=== PATIENT | female | born 1965 | race Caucasian/White ===

== ENCOUNTER 2020-06-04 08:05 | Outpatient (REF) | payer MEDICARE, MEDICAID, SELFPAY | END 2020-06-04 08:06 | disposition home or self-care (01) | LOC: HO.HAP 08:05 | PROVIDERS: Visit Provider Nurse Practitioner Family | DX: H90.3 Sensorineural hearing loss, bilateral (principal); Z46.1 Encounter for fitting and adjustment of hearing aid | CPT/HCPCS: 92593; 99499 ==

== ENCOUNTER 2020-07-03 08:19 | Outpatient (REF) | payer MEDICARE, MEDICAID, SELFPAY | END 2020-07-03 08:20 | disposition home or self-care (01) | LOC: HO.HAP 08:19 | PROVIDERS: Visit Provider Nurse Practitioner Family | DX: Z13.89 Encounter for screening for other disorder (principal) ==

== ENCOUNTER 2021-06-02 13:58 | Outpatient (REF) | payer MEDICARE, MEDICAID, SELFPAY ==
--- NOTE | 2021-06-02 14:26 | MHC.AU.P13 ---
Hearing Instrument Problem Date of Visit: 06/02/21 Right Ear: Obstetrics Technician: Phonak Model: AUDEO M50-R Serial Number: [id number] Repair Warranty: 02/11/2022 Battery Size: Rechargeable Color: SANDALWOOD It Programmer Analyst: 1M Type of Mold: CSHELL [id number] Type of Wax Guard: CERUSTOP Dispensed By: [facility] Date of Fittin11/17/2018 Left Ear: Obstetrics Technician: Phonak Model: AUDEO M50-R Serial Number: [id number] Repair Warranty: 02/11/2022 Battery Size: Rechargeable Color: SANDALWOOD It Programmer Analyst: 1M Type of Mold: CSHELL [id number] Type of Wax Guard: CERUSTOP Dispensed By: [facility] Date of Fittin11/17/2018 Follow-Up Summary: Patient states parts and service manager got wet. Gave replacement parts and service manager, hearing aids cleaned and wax guards replaced - amplifying clearly. Patient will go home and leave in parts and service manager to be sure lights go green. If not she will drop off aids to send to [employer] for repair. [employer] is sending replacement parts and service manager for our stock at no charge as aids under warranty. Recommendations: Recommendations: Hearing instrument follow-up or maintenance as needed. Signature: Provider: SHAYNE Pollakc-HIS
== END 2021-06-02 13:59 | disposition home or self-care (01) ==
LOC: HO.HAP 13:58
PROVIDERS: Visit Provider Nurse Practitioner Family
DX: Z13.89 Encounter for screening for other disorder (principal)

== ENCOUNTER 2021-07-30 13:56 | Outpatient (REF) | payer SELFPAY ==
--- NOTE | 2021-07-30 14:23 | MHC.AU.P13 ---
Hearing Instrument Problem Date of Visit: 07/30/21 Right Ear: Lvn: Phonak Model: AUDEO M50-R Serial Number: [id number] Repair Warranty: 02/11/2022 Battery Size: Rechargeable Color: SANDALWOOD Expanded Function Dental Assistant: 1M Type of Mold: CSHELL [id number] Type of Wax Guard: CERUSTOP Dispensed By: [facility] Date of Fittin11/17/2018 Left Ear: Lvn: Phonak Model: AUDEO M50-R Serial Number: [id number] Repair Warranty: 02/11/2022 Battery Size: Rechargeable Color: SANDALWOOD Expanded Function Dental Assistant: 1M Type of Mold: CSHELL [id number] Type of Wax Guard: CERUSTOP Dispensed By: [facility] Date of Fittin11/17/2018 Follow-Up Summary: Patient brought in aids with broken canal lock on right cshell. Patient had extra bag of cshells and was able to attach another canal lock one on the right side. Both aids were cleaned and amplifying clearly. Reginaldo Mcduffie saw patient to be sure good fit. Patient pleased and will call if any other problems. Recommendations: Recommendations: Hearing instrument follow-up or maintenance as needed. Diagnosis Code(s): Primary Diagnosis: H90.3 Bilateral Sensorineural Hearing Loss Signature: Provider: SHAYNE Pollack-HIS
== END 2021-07-30 13:57 | disposition home or self-care (01) ==
LOC: HO.HAP 13:56
PROVIDERS: Visit Provider Nurse Practitioner Family
DX: Z46.1 Encounter for fitting and adjustment of hearing aid (principal); H90.3 Sensorineural hearing loss, bilateral
CPT/HCPCS: V5267

== ENCOUNTER 2022-05-11 10:30 | Outpatient (REF) | payer MEDICARE, MEDICAID, SELFPAY ==
--- NOTE | 2022-05-11 15:29 | MHC.AU.HFU ---
Hearing Instrument Follow-Up- Binaural Date of Visit: 05/11/22 Right Ear: Samantha Elizabetho M50-R SN: [id number] Color: Sandalwood Repair Warranty: 02/11/2022 Battery Size: Rechargeable Door Manager: 1M Type of Mold: C-shell with canal lock SN: [id number] Type of Wax Guard: CeruStop Dispensed By: [facility] Date of Fittin11/17/2018 Left Ear:Samantha Elizabetho M50-R SN: [id number] Color: Sandalwood Repair Warranty: 02/11/2022 Battery Size: Rechargeable Door Manager: 1M Type of Mold: c-shell with canal lock SN: [id number] Type of Wax Guard: CeruStop Dispensed By: [facility] Date of Fittin11/17/2018 Follow-Up Summary: Breanna dropped off both hearing aids reporting that the right hearing aid is not working. Cleaned both hearing aids and c-shells. Vacuumed microphones and replaced wax guards. A listening check demonstrated that the left hearing aid is working well. The right hearing aid turns on but does not amplify sound. Using a hat stock laminating machine operator, the hearing aid works well. Will order a new c-shell and manager body from [facility] using impression on file. Recommendations: Breanna was contacted and plans to leaf size picker her left hearing aid tomorrow (05/12/22). She will be contacted when the new right c-shell and manager body have arrived and her right hearing aid is ready to be picked up. Her right hearing aid with old c-shell and manager body is in the Repair drawer. When new c-shell and manager body arrive, they need to be connected to right hearing aid and ensure hearing aid is functioning properly. Breanna now has [employer] to bill for repair. Diagnosis Code(s): Primary Diagnosis: H90.3 Bilateral Sensorineural Hearing Loss Signature: Provider: Irene Contreras, [facility]
== END 2022-05-11 10:31 | disposition home or self-care (01) ==
LOC: HO.HAP 10:30
PROVIDERS: Visit Provider Internal Medicine
DX: Z46.1 Encounter for fitting and adjustment of hearing aid (principal); H90.3 Sensorineural hearing loss, bilateral
CPT/HCPCS: 92593

== ENCOUNTER 2022-05-12 12:24 | Outpatient (REF) | payer MEDICARE, MEDICAID, SELFPAY | END 2022-05-12 12:25 | disposition home or self-care (01) | LOC: HO.HAP 12:24 | DX: Z13.89 Encounter for screening for other disorder (principal) ==

== ENCOUNTER 2022-06-02 12:11 | Outpatient (REF) | payer MEDICARE, MEDICAID, SELFPAY | END 2022-06-02 12:12 | disposition home or self-care (01) | LOC: HO.HAP 12:11 | PROVIDERS: Visit Provider Nurse Practitioner Family | DX: Z46.1 Encounter for fitting and adjustment of hearing aid (principal); H90.3 Sensorineural hearing loss, bilateral | CPT/HCPCS: V5264 ==

== ENCOUNTER 2022-11-11 14:39 | Emergency (ER) | payer MEDICARE, MEDICAID, SELFPAY ==
--- NOTE | ~2022-11-11 | XR_ITS ---
EXAMINATION: XR ELBOW, FOREARM, WRIST, RIGHT CLINICAL INFORMATION: Pain. COMPARISON: None available. TECHNIQUE: PA, lateral, and oblique views of the right elbow, forearm and wrist. FINDINGS: The right elbow joint is unremarkable. The radius and ulna are intact. The carpal bones are normally aligned. Mild first carpometacarpal and triscaphe degenerative joint changes are seen. The soft tissues are unremarkable. XR/XR elbow RT min 3V IMPRESSION: 1. No acute fracture. 2. 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
--- NOTE | ~2022-11-11 | CT_ITS ---
EXAMINATION: CT HEAD WITHOUT CONTRAST CT CERVICAL SPINE WITHOUT CONTRAST CLINICAL INFORMATION: Fall. Hit head. COMPARISON: None available. TECHNIQUE: Contiguous axial imaging was performed from the skull base to vertex without intravenous administration of contrast. Contiguous axial imaging was performed from the upper chest through the skull base without intravenous administration of contrast. Coronal and sagittal reformats were obtained at the acquisition workstation. This CT examination was performed using dose optimization techniques as appropriate, variously including the following: *Automated exposure control. *Adjustment of mA and/or kV according to patient size (this includes techniques or standardized protocols for targeted exams where dose is matched to indication/reason for exam; i.e. extremities or head). *Use of iterative reconstruction technique. DLP: 865 mGy-cm FINDINGS: Head: There is no evidence of acute intracranial hemorrhage or edematous territorial infarction. Cadena-white matter differentiation is preserved. There is no abnormal attenuation within the brain parenchyma. The ventricles are normal in morphology and size. No evidence for obstructive hydrocephalus. No abnormal mass effect or midline shift. No extra-axial fluid collections. No acute soft tissue or osseous abnormalities. Mild mucosal thickening of the paranasal sinuses. The mastoid air cells and middle ear cavities are clear. Cervical Spine: The atlantooccipital and atlantoaxial articulations remain well aligned. Moderate degenerative arthropathy of the atlantodental articulation. Straightening of the normal cervical lordosis. Otherwise, there is anatomic alignment of the vertebral bodies and posterior elements. No evidence of acute fracture or subluxation. The vertebral body heights are maintained. Straightening of the normal cervical lordosis. Advanced degenerative disc disease at C3-C4 and C5-C6. Moderate degenerative disc disease at C4-C5 and C6-C7. Facet and uncovertebral joint arthropathy leads to osseous encroachment on the neural foramina at C3-C4 and C5-C6. There is no prevertebral soft tissue swelling. The thyroid gland and remaining cervical soft tissues are within normal limits. The lung apices demonstrate no abnormalities. CT/CT cervical spine wo IV con IMPRESSION: 1. No evidence of acute intracranial hemorrhage or edematous territorial infarction. 2. No evidence of acute fracture or traumatic subluxation of the cervical spine. 3. Moderate multilevel degenerative spondyloarthropathy of the cervical spine.
--- NOTE | ~2022-11-11 | XR_ITS ---
EXAMINATION: XR ELBOW, FOREARM, WRIST, RIGHT CLINICAL INFORMATION: Pain. COMPARISON: None available. TECHNIQUE: PA, lateral, and oblique views of the right elbow, forearm and wrist. FINDINGS: The right elbow joint is unremarkable. The radius and ulna are intact. The carpal bones are normally aligned. Mild first carpometacarpal and triscaphe degenerative joint changes are seen. The soft tissues are unremarkable. XR/XR wrist RT 2V IMPRESSION: 1. No acute fracture. 2. 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
--- NOTE | ~2022-11-11 | XR_ITS ---
EXAMINATION: XR HAND, RIGHT CLINICAL INFORMATION: Fourth finger pain COMPARISON: None available. TECHNIQUE: PA, lateral, and oblique views of the right hand. FINDINGS: There is osteopenia visualized bones. There is some soft tissue prominence seen about the second proximal and distal interphalangeal joints and the third proximal interphalangeal joint. No acute fracture or dislocation is evident. There is some degenerative spurring about the first interphalangeal joint as well some mild degenerative spurring and joint space narrowing about the third, fourth, and fifth distal interphalangeal joints. There is degenerative change with subchondral cyst formation and spurring about the first carpal metacarpal joint. XR/XR hand RT min 3V IMPRESSION: Osteopenia and degenerative change of the right hand without evidence of acute fracture or dislocation of the fourth finger.
--- NOTE | ~2022-11-11 | XR_ITS ---
EXAMINATION: XR ELBOW, FOREARM, WRIST, RIGHT CLINICAL INFORMATION: Pain. COMPARISON: None available. TECHNIQUE: PA, lateral, and oblique views of the right elbow, forearm and wrist. FINDINGS: The right elbow joint is unremarkable. The radius and ulna are intact. The carpal bones are normally aligned. Mild first carpometacarpal and triscaphe degenerative joint changes are seen. The soft tissues are unremarkable. XR/XR forearm RT 2V IMPRESSION: 1. No acute fracture. 2. 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
[2022-11-11 15:03] VITALS: BP 148/81; PULSE 66; RESP 17; TEMP 36.6; BMI 24.0
--- NOTE | 2022-11-11 15:03 | ED.EXTPRO ---
HPI - Extremity Problem General Chief complaint: Extremity Problem <TRACIE Romo Last Filed: 11/11/22 19:03> Stated complaint: finger injury on R hand <TRACIE Romo Last Filed: 11/11/22 19:03> Time Seen by Provider: 11/11/22 15:39 <TRACIE Romo Last Filed: 11/11/22 19:03> Source: patient, RN notes reviewed and old records reviewed <TRACIE Benavidez Last Filed: 11/11/22 18:51> Mode of arrival: ambulatory <TRACIE Benavidez Last Filed: 11/11/22 18:51> History of Present Illness HPI Narrative: 57-year-old female with no significant past medical history presenting to the ED complaining of right 4th digit, forearm, and elbow pain s/p being pulled down by dogs last night around 22:00. States dog saw squirrel and bolted, patient fell face 1st onto pavement, denies LOC. denies taking anticoagulation. Reports mild headache and neck soreness. Denies vision change/loss, nausea/vomiting, CP/SOB, numbness/tingling, incontinence/retention <TRACIE Benavidez Last Filed: 11/11/22 18:51> MD Complaint: extremity pain <TRACIE Benavidez Last Filed: 11/11/22 18:51> Onset (ago): day(s) <TRACIE Benavidez Last Filed: 11/11/22 18:51> Related Data Allergies/Adverse reactions: Allergies Allergy/AdvReac Type Severity Reaction Status Date / Time No Known Allergies Allergy Verified 11/11/22 15:02 <TRACIE Romo Last Filed: 11/11/22 19:03> Review of Systems Review of Systems: Constitutional: No Fever, No Chills, No Fatigue, No Malaise ENT/Mouth: No Ear Pain, No Nasal Congestion, No sore throat, No Rhinorrhea, No Swallowing Difficulty Eyes: No Eye Pain, No Swelling, No Redness, No Vision Changes Cardiovascular: No Chest Pain, No SOB, No Edema, No Palpitations Respiratory: No Cough, No Sputum, No Dyspnea Gastrointestinal: No Nausea, No Vomiting, No Diarrhea, No Constipation, No Abdominal pain Genitourinary: No Dysuria, No Urinary Frequency, No Hematuria, No Urinary Incontinence/retention Musculoskeletal: + joint pain, No Myalgias, + Joint Swelling Skin: + Skin Lesions, No rash Neuro: No Weakness, No Numbness, No Paresthesias, No Loss of Consciousness, No Dizziness, + Headache <TRACIE Benavidez - Last Filed: 11/11/22 18:51> Yes all other systems are reviewed and are negative <TRACIE Benavidez - Last Filed: 11/11/22 18:51> Constitutional: Constitutional: Reports as per HPI <TRACIE Benavidez - Last Filed: 11/11/22 18:51> [facility] Past Medical History Attestation statement: The following information was validated with the patient. <TRACIE Benavidez - Last Filed: 11/11/22 18:51> Source: old records reviewed <TRACIE Benavidez - Last Filed: 11/11/22 18:51> Social History Social History: Social History Advance Directives: No Advance Directives Information Provided: No <TRACIE Romo - Last Filed: 11/11/22 19:03> Physical Exam Vital Signs: Vital Signs: Last Vital Signs Temp 98.9 F 11/11/22 18:00 Pulse 63 11/11/22 18:00 Resp 16 11/11/22 18:00 BP 134/78 11/11/22 18:00 Pulse Ox 100 11/11/22 18:00 O2 Del Method Room Air 11/11/22 18:00 BMI result Body Mass Index 24.0 <TRACIE Romo - Last Filed: 11/11/22 19:03> Vital Signs: Last Vital Signs Temp 98.9 F 11/11/22 18:00 Pulse 63 11/11/22 18:00 Resp 16 11/11/22 18:00 BP 134/78 11/11/22 18:00 Pulse Ox 100 11/11/22 18:00 O2 Del Method Room Air 11/11/22 18:00 BMI result Body Mass Index 24.0 <TRACIE Benavidez - Last Filed: 11/11/22 18:51> Const: General: cooperative, healthy appearing, no acute distress, alert and awake <TRACIE Benavidez - Last Filed: 11/11/22 18:51> Orientation/consciousness: patient oriented x3 <TRACIE Benavidez - Last Filed: 11/11/22 18:51> Limitations: no limitations <TRACIE Benavidez - Last Filed: 11/11/22 18:51> HEENT: Head: Yes normal to inspection, Yes atraumatic, No Rich's sign and No raccoon eyes <TRACIE Benavidez - Last Filed: 11/11/22 18:51> Ears: hearing grossly normal bilaterally <TRACIE Benavidez - Last Filed: 11/11/22 18:51> General nose exam: Normal external nose present <TRACIE Benavidez - Last Filed: 11/11/22 18:51> Face and sinus: Yes normal facial exam <TRACIE Benavidez - Last Filed: 11/11/22 18:51> Throat: Yes posterior oropharynx normal <TRACIE Benavidez - Last Filed: 11/11/22 18:51> Eyes: General: appearance normal, both eyes and all related structures <TRACIE Benavidez - Last Filed: 11/11/22 18:51> Pupils: Equal, round and reactive pupils present <TRACIE Benavidez - Last Filed: 11/11/22 18:51> EOM: EOMs intact bilaterally <TRACIE Benavidez - Last Filed: 11/11/22 18:51> Neck: Other: No midline cervical spinous tenderness/step-off or deformity <TRACIE Benavidez - Last Filed: 11/11/22 18:51> Neck: Yes normal visual inspection and Yes no meningeal signs <TRACIE Benavidez - Last Filed: 11/11/22 18:51> Chest: Chest palpation & inspection: normal inspection of the chest <TRACIE Benavidez - Last Filed: 11/11/22 18:51> Resp: Effort & Inspection: normal respiratory effort and no respiratory distress <TRACIE Benavidez - Last Filed: 11/11/22 18:51> Cardio: Rate: regular rate <TRACIE Benavidez - Last Filed: 11/11/22 18:51> Peripheral pulses: Peripheral pulses 2+ throughout <TRACIE Benavidez Last Filed: 11/11/22 18:51> Back/Spine/Pelvis: Other: No midline cervical/thoracic/lumbar spinous tenderness/step-off or deformity <TRACIE Benavidez Last Filed: 11/11/22 18:51> Skin: Rashes: no rashes <TRACIE Benavidez - Last Filed: 11/11/22 18:51> Neuro: General: patient oriented x3, gait normal, tone normal, moves all extremities, no meningeal signs, no focal motor deficits and CN's II-XI intact bilaterally <TRACIE Benavidez - Last Filed: 11/11/22 18:51> Cranial nerves: Yes CN's II-XII intact bilaterally, Yes Equal, round and reactive pupils present and Yes Bilaterally intact EOM present <TRACIE Benavidez Last Filed: 11/11/22 18:51> Motor exam (neuro): 5/5 motor strength present throughout <TRACIE Benavidez Last Filed: 11/11/22 18:51> Extrem: Other: Right 4th digit with diffuse swelling and ecchymosis. Tender to palpation. Full range of motion intact with pain. + healing ecchymosis with superficial abrasions to right wrist, forearm and elbow w/mild swelling. Mildly tender to palpation. No snuffbox tenderness. Supination/pronation and elbow flexion/extension intact. NV intact <TRACIE Benavidez Last Filed: 11/11/22 18:51> Course Course Course Narrative: This is an RME: Additional HPI, ROS, PE not included below will be deferred to primary provider. Is a 57-year-old female presenting with pain to right 4th finger status post being to by her dog on a leash. Since then has been having pain to this finger worse with movement better at rest. Also reports are some bruising to the right upper extremity physical exam painful range of motion to right 4th finger. Plan x-ray <TRACIE Romo Last Filed: 11/11/22 19:03> This is an RME: Additional HPI, ROS, PE not included below will be deferred to primary provider. Is a 57-year-old female presenting with pain to right 4th finger status post being to by her dog on a leash. Since then has been having pain to this finger worse with movement better at rest. Also reports are some bruising to the right upper extremity physical exam painful range of motion to right 4th finger. Plan x-ray XR hand RT min 3V IMPRESSION: Osteopenia and degenerative change of the right hand without evidence of acute fracture or dislocation of the fourth finger. XR wrist RT 2V/XR forearm RT 2V/XR elbow RT min 3V IMPRESSION: 1.? No acute fracture. 2.? 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 > finger splint applied for comfort/stability 1899--ED care transfer to TRACIE Villasenor pending CT results and anticipated dispo <TRACIE Benavidez - Last Filed: 11/11/22 18:51> Reevaluation(s) Reevaluation #1: I received sign-out on this patient pending head CT and CT of cervical spine. Head CT with no evidence of acute intracranial hemorrhage or edematous her to oral infarction. No acute fractures or traumatic subluxations of cervical spine. Moderate multilevel degenerative spondyloarthropathy of the cervical spine. I did discuss this case with patient's primary provider Monae who will let patient know about these findings. plan dc home. Educated patient on diagnosis and treatment plan, answered all question, patient verbalizes understanding. At this time patient will be discharged home, advised to return with new or worsening symptoms. Educated on worrisome signs and symptoms and when to return. At this time I feel comfortable discharge home. <TRACIE Romo - Last Filed: 11/11/22 19:03> Time: 19:03 <TRACIE Romo - Last Filed: 11/11/22 19:03> Medical Decision Making Medical Decision Making MDM Narrative: 57-year-old female with no significant past medical history presenting to the ED complaining of right 4th digit, forearm, and elbow pain s/p being pulled down by dogs last night around 22:00. On exam vital signs stable, NAD, nontoxic appearing, physical exam as noted above. No evidence of head trauma, no midline spinous tenderness, no red flag symptoms, RUE with ecchymosis, swelling and tenderness as listed above. Concern for fracture vs sprain. Low suspicion for ICH, cauda equina/cord compression or compartment syndrome. No evidence of infection Plan: X-rays, head/C-spine CT Please refer to course for remaining clinical decision making, interpretation of labs/imaging results, and discussions with consultants and/or family members. <TRACIE Benavidez - Last Filed: 11/11/22 18:51> Differential Diagnosis Differential Diagnoses: The differential diagnosis associated with the presentation includes <TRACIE Benavidez Last Filed: 11/11/22 18:51> As above <TRACIE Benavidez - Last Filed: 11/11/22 18:51> Lab Data MDM Lab Attestation statement: I reviewed the patient's lab results. <TRACIE Benavidez - Last Filed: 11/11/22 18:51> Radiology Impression Discussion of test interpretation with radiology: I have reviewed the radiologist's reading. <TRACIE Benavidez - Last Filed: 11/11/22 18:51> External Record Review External record reviewed: Inpatient record, Office record, Outpatient record, Prior outpatient labs, Prior outpatient radiology, Primary care record and Outside ED record <TRACIE Benavidez - Last Filed: 11/11/22 18:51> Tests considered The following testing was considered but not selected: As above <TRACIE Benavidez - Last Filed: 11/11/22 18:51> Procedures Orthopedic Splinting/Casting Injury #1: Side: right <TRACIE Benavidez - Last Filed: 11/11/22 18:51> Upper Extremity Injury Location: finger <TRACIE Benavidez Last Filed: 11/11/22 18:51> Upper Extremity Immobilizer: finger (other) <TRACIE Benavidez - Last Filed: 11/11/22 18:51> Discharge Plan Discharge Clinical Impression: Finger sprain, Head injury <TRACIE Romo Last Filed: 11/11/22 19:03> Patient Disposition: Home, Self-Care <TRACIE Romo Last Filed: 11/11/22 19:03> Instructions: Head Injury (ED), Finger Sprain (ED) <TRACIE Romo - Last Filed: 11/11/22 19:03> Additional Instructions: Your x-rays do not show any fracture, you do have some arthritic changes Use finger splint as needed. Ice. Elevate. Take Tylenol and Motrin for pain If symptoms persist or worsen return to the ED Follow-up with your doctor <TRACIE Romo - Last Filed: 11/11/22 19:03> Referrals: Helene Disla NP [Primary Care Provider] - 3 days <TRACIE Romo - Last Filed: 11/11/22 19:03>
[2022-11-11 18:00] VITALS: BP 134/78; PULSE 63; RESP 16; TEMP 37.2; O2SAT 100
== END 2022-11-11 19:30 | disposition home or self-care (01) ==
PROVIDERS: Emergency Provider Student in an Organized Health Care Education/Training Program; PCP Nurse Practitioner Family
DX: S09.90XA Unspecified injury of head, initial encounter (principal); S63.634A Sprain of interphalangeal joint of right ring finger, initial encounter; W18.39XA Other fall on same level, initial encounter; Y93.K1 Activity, walking an animal; Y92.480 Sidewalk as the place of occurrence of the external cause; Y99.8 Other external cause status
CPT/HCPCS: 29130; 70450; 72125; 73080; 73090; 73100; 73130; 99283; 99284

== ENCOUNTER 2023-09-15 09:43 | Outpatient (REF) | payer MEDICARE, MEDICAID, SELFPAY ==
--- NOTE | 2023-09-16 09:58 | MHC.AU.HA3 ---
Hearing Instrument Follow-Up- Binaural Date of Visit: 09/16/23 Right Ear: Make, Model, Color, Serial Number: Samantha Koroma M50-R SN: [id number] Color: [place] Store Leader Repair Warranty: 02/11/2022 Store Leader Loss and Damage Warranty: [facility] Service Plan: Battery Size: Rechargeable Panel Lay Up Worker/Slim Tube: 1M Earmold/Dome/CShell/SlimTip:C-shell with canal lock SN: [id number] [place] [employer] warranty 08/18/2022 Type of Wax Guard: CeruStop Dispensed By: [facility] Date of Fittin11/17/2018 Left Ear: Make, Model, Color, Serial Number: Samantha Koroma M50-R SN: [id number] Color: [place] Store Leader Repair Warranty: 02/11/2022 Store Leader Loss and Damage Warranty: [facility] Service Plan: Battery Size: Rechargeable Panel Lay Up Worker/Slim Tube: 1M Earmold/Dome/CShell/SlimTip: c-shell with canal lock SN: [id number] Type of Wax Guard: CeruStop Dispensed By: [facility] Date of Fittin11/17/2018 Follow-Up Summary: Right aid dropped off with primer charger. Cleaned and checked aid and c-shell, wax guard missing, lead technical architect occluded with wax. Still not working after cleaning. Listening check positive with stock holder. C-shell needs to be replaced. Spoke with patient 09/15 she reports c-shell fits fine, will order new duplicate c-shell from [employer]. Recommendations: Recommendations: Patient will be contacted when materials have arrived. Recommendations (Other): Aid and primer charger in repair drawer. Diagnosis Code(s): Primary Diagnosis: H90.3 Bilateral Sensorineural Hearing Loss Signature: Provider: Irene Johnson, [facility]
== END 2023-09-15 09:44 | disposition home or self-care (01) ==
LOC: HO.HAP 09:43
PROVIDERS: Visit Provider Nurse Practitioner Family
DX: Z13.89 Encounter for screening for other disorder (principal)

== ENCOUNTER 2023-09-23 13:17 | Outpatient (REF) | payer MEDICARE, MEDICAID, SELFPAY | END 2023-09-23 13:18 | disposition home or self-care (01) | LOC: HO.HAP 13:17 | PROVIDERS: Visit Provider Nurse Practitioner Family | DX: Z46.1 Encounter for fitting and adjustment of hearing aid (principal) | CPT/HCPCS: 92700; V5264 ==

== ENCOUNTER 2023-09-28 14:21 | Outpatient (REF) | payer MEDICARE, MEDICAID, SELFPAY | END 2023-09-28 14:22 | disposition home or self-care (01) | LOC: HO.HAP 14:21 | PROVIDERS: Visit Provider Nurse Practitioner Family | DX: Z13.89 Encounter for screening for other disorder (principal) ==

== ENCOUNTER 2023-10-20 12:42 | Outpatient (REF) | payer MEDICARE, MEDICAID, SELFPAY | END 2023-10-20 12:43 | disposition home or self-care (01) | LOC: HO.HAP 12:42 | PROVIDERS: Visit Provider Nurse Practitioner Family | DX: Z13.89 Encounter for screening for other disorder (principal) ==

== ENCOUNTER 2024-02-25 14:54 | Outpatient (REF) | payer MEDICARE, MEDICAID, SELFPAY ==
--- NOTE | 2024-02-28 08:41 | MHC.AU.HA1 ---
Hearing Aid Evaluation Date of Visit: 02/25/24 Historical Information: Description of Hearing: Within normal steeply sloping to profound sensorineural hearing loss, bilaterally Current personal amplification information: Phonak Audeo M50-Rs fit in November 2018 Summary: Provided updated hearing test and medical clearance from ENT Surgeons. Hearing relatively stable. Medical clearance missing Date of Evaluation and circled ears for clearance. Will need to get updated MC before proceeding with new hearing aids. Discussed new technology. Beranna opted to pursue same style, rechargeable, with c-shells. Impressions taken, bilaterally, without incident. Will order hearing aids pending updated medical clearance. Hearing Aid Prescription: Based on the individual?s shared listening needs, communication environments, dexterity, desire for connectivity, and personal preferences, the following prescription for amplification has been made: Right ear: Make, Model, Color: Phonak Audeo L70-R Color: [place] Battery Size: Rechargeable Investment Banking Associate/Slim Tube: 1M Type of Earmold/Dome/CShell/SlimTip: c-shell with canal lock Left ear: Left ear prescription to be same as Right Hearing Aid above: Make, Model, Color: Phonak Audeo L70-R Color: [place] Battery Size: Rechargeable Investment Banking Associate/Slim Tube: 1M Type of Earmold/Dome/CShell/SlimTip: c-shell with canal lock Accessories/Assistive Technology: Wafer Polishing Lead Worker Plan of Care: Patient wishes to purchase hearing aids as prescribed Action Taken/Action Needed: Medical Clearance to be requested from PCP/ENT. Hearing Instrument Fitting to be scheduled when materials arrive Primary Diagnosis: H90.3 Bilateral Sensorineural Hearing Loss Signature: Provider: Irene Contreras, [facility]
== END 2024-02-25 14:55 | disposition home or self-care (01) ==
LOC: HO.HAP 14:54
PROVIDERS: Visit Provider Nurse Practitioner Family
DX: Z46.1 Encounter for fitting and adjustment of hearing aid (principal); H90.3 Sensorineural hearing loss, bilateral
CPT/HCPCS: 92591; V5275

== ENCOUNTER 2024-04-12 12:52 | Outpatient (REF) | payer MEDICARE, MEDICAID, SELFPAY ==
--- NOTE | 2024-04-12 13:28 | MHC.AU.HA2 ---
Hearing Instrument Fitting- Adult- Binaural Date of Visit: 04/12/24 Hearing Instruments Dispensed: Right Ear: Make, Model, Color, Serial Number: Samantha Koroma L70-R SN: [id number] Color: [place]wood Store Operations Specialist Repair Warranty: 04/06/2027 Store Operations Specialist Loss and Damage Warranty: 04/06/2027 [facility] Service Plan: 04/12/2025 Battery Size: Rechargeable Tin Assorter/Slim Tube: 1M Earmold/Dome/CShell/SlimTip: c-shell with canal lock SN: [id number] Warranty 07/05/2024 Type of Wax Guard: CeruStop Left Ear: Make, Model, Color, Serial Number: Samantha Koroma L70-R SN: [id number] Color: [place] Store Operations Specialist Repair Warranty: 04/06/2027 Store Operations Specialist Loss and Damage Warranty: 04/06/2027 [facility] Service Plan: 04/12/2025 Battery Size: Rechargeable Tin Assorter/Slim Tube: 1M Earmold/Dome/CShell/SlimTip: c-shell with canal lock SN: [id number] Warranty 07/05/2024 Type of Wax Guard: CeruStop Accessories/Assistive Technology: Phonak cabinet finisher ease SN: [id number] Summary of Fitting: Ran feedback analyzer and real ear measures. Could not perform MPOs due to technical difficulties. Comfortable at real ear settings. Paired to cellphone. Discussed Corpora jannie but did not download at this time. Reviewed care, use, and rechargeability. As long-time hearing aid user, Breanna was familiar to general maintenance, insertion/removal, etc. Noted new molds felt more comfortable/secure in ears. Sound quality clearer. Provided extra hard Phonak case to keep old hearing aids in as back up. Breanna did not feel a follow up was necessary at this time. She will call if problems arise. Recommendations: Patient does not feel follow-up is necessary at this time. Please call our clinic with any questions or concerns. Diagnosis Code(s): Primary Diagnosis: H90.3 Bilateral Sensorineural Hearing Loss Signature: Provider: Irene Contreras, [facility]
== END 2024-04-12 12:53 | disposition home or self-care (01) ==
LOC: HO.HAP 12:52
PROVIDERS: Visit Provider Otolaryngology
DX: Z46.1 Encounter for fitting and adjustment of hearing aid (principal); H90.3 Sensorineural hearing loss, bilateral
CPT/HCPCS: V5011; V5020; V5160; V5261; V5264

== ENCOUNTER 2024-05-03 15:49 | Outpatient (REF) | payer MEDICARE, MEDICAID, SELFPAY ==
--- NOTE | 2024-05-03 16:57 | MHC.AU.HA3 ---
Hearing Instrument Follow-Up- Binaural Date of Visit: 05/03/24 Right Ear: Make, Model, Color, Serial Number: Samantha Koroma L70-R SN: [id number] Color: [place]wood Zumba Instructor Repair Warranty: 04/06/2027 Zumba Instructor Loss and Damage Warranty: 04/06/2027 [facility] [place] Service Plan: 04/12/2025 Battery Size: Rechargeable Pool Hall Inspector/Slim Tube: 1M Earmold/Dome/CShell/SlimTip:c-shell with canal lock SN: [id number] Warranty 07/05/2024 Type of Wax Guard: CeruStop Dispensed By: [facility] [place] Date of Fittin04/12/2024 Left Ear: Make, Model, Color, Serial Number: Samantha Koroma L70-R SN: [id number] Color: [place] Zumba Instructor Repair Warranty: 04/06/2027 Zumba Instructor Loss and Damage Warranty: 04/06/2027 [facility] [place] Service Plan: 04/12/2025 Battery Size: Rechargeable Pool Hall Inspector/Slim Tube: 1M Earmold/Dome/CShell/SlimTip: c-shell with canal lock SN: [id number] Warranty 07/05/2024 Type of Wax Guard: CeruStop Dispensed By: [facility] [place] Date of Fittin04/12/2024 Follow-Up Summary: Reports molds seem to shift about in her ears and occasionally cause sound to become muffled, reports this is worse left but happens with the right as well. Notes if she pulls molds slightly out of ears she hears better. Impressions taken without incidence Au to get c-shells remade. Hearing aids are stored in a phonak box in the repair drawer. Needs appointment to burr picker. Recommendations: Recommendations: Patient will be contacted when materials have arrived. Diagnosis Code(s): Primary Diagnosis: H90.3 Bilateral Sensorineural Hearing Loss Signature: Provider: Irene Johnson, [facility]
== END 2024-05-03 15:50 | disposition home or self-care (01) ==
LOC: HO.HAP 15:49
PROVIDERS: Visit Provider Nurse Practitioner Family
DX: Z13.89 Encounter for screening for other disorder (principal)

== ENCOUNTER 2024-06-07 14:43 | Outpatient (REF) | payer MEDICARE, MEDICAID, SELFPAY ==
--- NOTE | 2024-06-07 15:16 | MHC.AU.HA3 ---
Hearing Instrument Follow-Up- Binaural Date of Visit: 06/07/24 Right Ear: Make, Model, Color, Serial Number: Samantha Koroma L70-R SN: [id number] Color: [place] Tape Edge Machine Operator Repair Warranty: 04/06/2027 Tape Edge Machine Operator Loss and Damage Warranty: 04/06/2027 [facility] Service Plan: 04/12/2025 Battery Size: Rechargeable Screen Printing Paster/Slim Tube: 1M Earmold/Dome/CShell/SlimTip:c-shell with canal lock SN: [id number] Warranty 07/05/2024 Type of Wax Guard: CeruStop Dispensed By: [facility] Date of Fittin04/12/2024 Left Ear: Make, Model, Color, Serial Number: Samantha Koroma L70-R SN: [id number] Color: [place] Tape Edge Machine Operator Repair Warranty: 04/06/2027 Tape Edge Machine Operator Loss and Damage Warranty: 04/06/2027 [facility] Service Plan: 04/12/2025 Battery Size: Rechargeable Screen Printing Paster/Slim Tube: 1M Earmold/Dome/CShell/SlimTip: c-shell with canal lock SN: [id number] Warranty 07/05/2024 Type of Wax Guard: CeruStop Dispensed By: [facility] Date of Fittin04/12/2024 Follow-Up Summary: Dispensed remake earmolds. Updated acoustic code in target, ran feedback management. Beranna reports that they feel good and secure. Declined further follow up at this time, will call if problems persist. Recommendations: Recommendations: Patient will call if problems persist. Diagnosis Code(s): Primary Diagnosis: H90.3 Bilateral Sensorineural Hearing Loss Signature: Provider: Irene Johnson, CCC-A
== END 2024-06-07 14:44 | disposition home or self-care (01) ==
LOC: HO.HAP 14:43
PROVIDERS: Visit Provider Nurse Practitioner Family
DX: Z13.89 Encounter for screening for other disorder (principal)

== ENCOUNTER 2024-10-06 13:35 | Outpatient (REF) | payer SELFPAY | END 2024-10-06 13:36 | disposition home or self-care (01) | LOC: HO.HAP 13:35 | PROVIDERS: Visit Provider Nurse Practitioner Family | DX: Z46.1 Encounter for fitting and adjustment of hearing aid (principal); H90.3 Sensorineural hearing loss, bilateral | CPT/HCPCS: V5267 ==

== ENCOUNTER 2024-11-16 13:59 | Outpatient (REF) | payer MEDICARE, MEDICAID, SELFPAY ==
--- OUTSIDE RECORDS SUMMARY | 2024-11-16 14:55 | XMS_ITS | Clinical Summary ---
Author Organization [facility] Address [address] [place] [address] Care Team Providers Care Rn Correctional Name Role Phone Unavailable Primary Care Provider Unavailabl e Surgical History Surgery Date Site/Laterality Comments SECTION 1986 PROCEDURE: RI DELIVERY ONLY TUBAL LIGATION 1998 PROCEDURE: HISTORICAL TUBAL LIGATION BREAST SURGERY PROCEDURE: RI UNLISTED PROCEDURE BREAST; COMMENT: b/l breasts reduction Medical History Medical History Date Comments S/P appendectomy 01/29/2011 DX:S/P appendec jus H/O: hysterectomy 01/29/2011 DX:H/O: hyster ectomy Hearing loss 02/04/2012 DX:Hearing loss Ulcer DX:Ulcer Family History Medical History Relation Name Comments Hypertension Mother Other: aneurysm Paternal Grandmother Relation Name Status Comments Mother Paternal Grandmother Social History Tobacco Use Types Packs/Day Years Used Date Smoking Tobacco: Former Smokeless Tobacco: Never Alcohol Use Standard Drinks/Week Comments Yes 0 (1 standard drink = 0.6 oz pur e alcohol) Comments Unknown Sex and Gender Information Value Date Recorded Sex Assigned at Not on file Legal Sex Female 7:41 AM EST Gender Identity Not on file Sexual Orientation Not on file Obstetrics History Last Filed Vital Signs Vital Sign Reading Time Taken Comments Blood Pressure - - Pulse - - Temperature - - Respiratory Rate - - Oxygen Saturation - - Inhaled Oxygen Concentration - - Weight 77.1 kg (170 lb) 01/18/2024 8:27 AM EDT Height 162.6 cm (5' 4 ) 01/18/2024 8:27 AM EDT Body Mass Index 29.18 01/18/2024 8:27 AM EDT Plan of Treatment Health Maintenance Due Date Last Done Comments Breast Cancer Screening 1965 Hepatitis A Vaccines (1 of 2 - Risk 2-dose series) 01/22/1983 Cervical Cancer Screening: P ap Smear 01/22/1985 Pneumococcal Vaccine: 50+ Years (1 of 1 - PCV) 01/22/2014 Zoster Vaccines (1 of 2) 01/22/2014 DTaP,Tdap,and Td Vaccines (3 - Td or Tdap) 02/03/2022 02/04/2012, 12/09/2006 Cholesterol Screening (Lipid Panel) 06/14/2022 Colorectal Cancer Screening: Colonoscopy 06/14/2022 Depression Screening 06/14/2022 HIV Screening 06/14/2022 Hepatitis C Screening 06/14/2022 Social Influencers of Health Screening 06/14/2022 COVID-19 Vaccine ( - 2023-2 5 season) 2024 Influenza Vaccine (Season Ended) 2025 RSV Immunization Adult Patients (1 - 1-dose 75+ series) 01/22/2039 HIB Vaccines Aged Out No longer eligi ble based on patient's age to complete this topic HPV Vaccines Aged Out No longer eligi ble based on patient's age to complete this topic Hepatitis B Vaccines Aged Out No long er eligible based on patient's age to complete this topic IPV Vaccines Aged Out No longer eligi ble based on patient's age to complete this topic MMR Vaccines Aged Out No longer eligi ble based on patient's age to complete this topic Meningococcal ACWY Vaccine Aged Out N o longer eligible based on patient's age to complete this topic Meningococcal B Vaccine Aged Out No l onger eligible based on patient's age to complete this topic Pneumococcal Vaccine: Pediatrics (0 to 5 Years) and At-Risk Patients (6 to 64 Years) Aged Out No longer eligible b ased on patient's age to complete this topic RSV Immunization Patients Under 20 months Aged Out No longer eligible b ased on patient's age to complete this topic Varicella Vaccines Aged Out No longer eligible based on patient's age to complete this topic
--- OUTSIDE RECORDS SUMMARY | 2024-11-16 14:55 | XMS_ITS | Clinical Summary ---
Author Organization [facility] Address [address] [place] [address] Care Team Providers Care Rag Collector Name Role Phone Domingo Gilliland Primary Care Provider [phone] Source Comments PLEASE NOTE, if this patient is a minor, it may be UNLAWFUL to discuss sensitive information that is contained in these records (such as FAMILY PLANNING, MENTAL HEALTH or SUBSTANCE ABUSE) with the minor patient's parent or other person without the patient's specific authorization.[facility] Allergies No known active allergies Medications traMADol (ULTRAM) 50 mg tablet 5 Active cyanocobalamin (VITAMIN B-12) 1,000 mcg tablet Take 1 Tab by mouth once daily. 90 Tab 3 5 Active vitamin D 2,000 unit tabletIndication s:Mild vitamin D deficiency Take 1 Tab by mouth once daily. 90 Tab 3 5 Active COMP.STOCKING,KN EE,LONG,X-LRG (COMPRESSION STOCKING)Indicat ions:Varicose veins of bilateral lower extremities with pain Dx: I83.813 Compression stocking compression level 20-30 mmHg. Indefinite need. 2 Each 4 6 Active levothyroxine (SYNTHROID, LEVOTHROID) 125 mcg tabletIndication s:Hypothyroidism due to acquired atrophy of thyroid Take 1 Tab by mouth once daily. 30 Tab 2 6 Active rOPINIRole (REQUIP) 2 mg tabletIndication s:Restless leg syndrome Take 1 Tab by mouth nightly at bedtime 90 Tab 3 8 Active Active Problems Problem Noted Date Diagnosed Date Hx of mammogram 12/14/2016 Overview (12/14/2016): [facility] negative in 2016 RUQ pain 07/07/2016 H/O endoscopy 06/06/2016 Overview (06/06/2016): Done @[facility] impression normal esophagus and gastric previous surgery Espino's cyst of knee 05/02/2015 S/P carpal tunnel release 08/23/2014 Overview (08/23/2014): On right successful 2010. H/O gastric ulcer 08/08/2014 Overview (08/08/2014): S/p EGD for UGIB(11/2012). Vitamin D deficiency 07/19/2014 Overview (07/19/2014): Level=14(07/2014) Anemia 07/19/2014 Overview (07/19/2014): YAN+ B12 def H/H= 9.8/32.5(07/2014) Pre-diabetes 07/19/2014 Overview (07/19/2014): A1c=6.4(07/2014) Hyperlipidemia 07/18/2014 Vitamin B12 deficiency 07/18/2014 Overview (07/18/2014): Egbkj=055(07/2014). Likely sec to gastric bypass? Hypothyroidism 07/17/2014 GERD (gastroesophageal reflux disease)/ PUD 12/2014 Restless leg syndrome 07/17/2014 Overview (07/17/2014): Has been on Ropinirole since ~ 1999. Even before Gastric bypass. Hearing difficulty of both ears 07/17/2014 Overview (08/08/2014): Uses Hearing aids since 2012, but can also manage w/o them sometimes. Also has family history. Audiogram in 2011 suggested severe sensorineural HL at low frequencies. Left tennis elbow/Lat Epicondylitis 07/17/2014 Overview (08/08/2014): Relates to overactivity using L elbow at work place. Follwing workers comp. Off work since 03/2014 as per pt. Following [facility], Dr. Earl Motta- got steroid injection in 04/2014. Probably planning for surgical option if no improvement. Chronic low back pain with Lumbar disc disease 0 07/17/2014 Overview (03/01/2015): [facility]. Dr. Carlos MD. low back pain persisted with mild improvement after SI joint injection, failed facet injections. Pt deferred epidural trial at this time 02/26/15 Arthritis 07/17/2014 H/O gastric bypass 07/17/2014 Overview (07/17/2014): gastric bypass ~2002. at [facility]. Was ~ 250 lb at that time Gastric ulcer Iron deficiency anemia Immunizations Immunization Administration Dates Next Due INFLUENZA, SEASONAL, INJECTABLE 04/27/2016,05/02,07/17/2014 Family History Medical History Relation Name Comments Arthritis Father Hearing loss Mother Hypertension Mother Relation Name Status Comments Brother 1 Alive Father Alive Mother Alive Sister 3 Alive Social History Tobacco Use Types Packs/Day Years Used Date Smoking Tobacco: Former Smokeless Tobacco: Never Tobacco Cessation:Counseling Given: Yes Comments:smoked 1 ppd for >10 yrs and quit ~ 1994 Alcohol Use Standard Drinks/Week Comments No 0 (1 standard drink = 0.6 oz pur e alcohol) stopped in 2013 Social Connections Answer Date Recorded Social Connections and Isolation 0 03/05/2019 Financial Resource Strain Answer Date R ecorded Financial Resource Strain 0 2018 Stress Answer Date Recorded Stress 0 03/05/2019 Physical Activity Answer Date Recorded Physical Activity 0 03/05/2019 Food Insecurity Answer Date Recorded Food 0 03/05/2019 Transportation Needs Answer Date Record ed Transportation 0 03/05/2019 Housing Stability Answer Date Recorded Housing 0 03/05/2019 Safety and Environment Answer Date Richard rded Safety 0 03/05/2019 Utilities Answer Date Recorded Utilities 0 03/05/2019 Employment Answer Date Recorded Employment 0 03/05/2019 Comments No Sex and Gender Information Value Date Recorded Sex Assigned at Not on file Legal Sex Female 7:12 AM PST Gender Identity Not on file Sexual Orientation Not on file Last Filed Vital Signs Vital Sign Reading Time Taken Comments Blood Pressure 102/64 07/01/2016 8:54 AM EST Pulse 72 07/01/2016 8:54 AM EST Temperature 36.9 ??C (98.5 ??F) 07/01/2016 8:54 AM ES T Respiratory Rate 16 07/01/2016 8:54 AM EST Oxygen Saturation 97% 07/08/2015 9:31 AM EST Inhaled Oxygen Concentration - - Weight 76.7 kg (169 lb) 07/01/2016 8:54 AM EST Height 162.6 cm (5' 4 ) 07/01/2016 8:54 AM EST Body Mass Index 29.01 07/01/2016 8:54 AM EST Plan of Treatment Health Maintenance Due Date Last Done Comments Anxiety Screening 1965 HPV Screening 1965 Pap + HPV 1965 Tobacco Screening 1965 HIV Screening 01/22/1979 CT Colonography 01/22/2009 Colonoscopy 01/22/2009 Colorectal Cancer Screening 01/22/2009 FIT/gFOBT 01/22/2009 Fecal DNA 01/22/2009 Flexible Sigmoidoscopy 01/22/2009 Imm-Zoster, Recombinant (1 of 2) 01/22/2014 TSH Monitoring 04/27/2017 04/27/2016, 02/10, 09/19/2015, Additional history exists Hypertension Screening (#1) 07/01/2017 Cervical Cancer Screening 08/12/2017 Pap Smear 08/12/2017 08/12/2014 (Kristina ged by Outside Provider) Diabetes Screening 10/11/2017 10/11/2014, 0 08/23/2014, 08/23/2014, Additional history exists Breast Cancer Screening (Mammogram) 09/30/2018 09/30/2016 (Managed by Outside Provider), 09/30/2016, 04/27/2016, Additional history exists Lipid Screening 08/23/2019 08/23/2014, 07/18/2014 Imm-DTaP/Tdap/Td (2 - Td or Tdap) 05/24/2023 05/24/2013 (Managed by Outside Provider) [id number] ( season) 2024 Imm-Influenza (#1) 2024 04/27/2016, 1 , 07/17/2014, Additional history exists Alcohol and Drug Screen 07/12/2024 04/27/20 16, 04/27/2016, 01/04/2015, Additional history exists Depression Annual Screen 07/12/2024 04/27/2016, 12/11 Hepatitis C Screening Completed 07/18/2014 Cervical Ablation/Cold-Knife Conization Discontinued Cervical Cryotherapy Discontinued Colposcopy Discontinued Endometrial Biopsy Discontinued Excision/Leep Discontinued HPV Genotyping Discontinued Imm-Hepatitis B Aged Out No longer el igible based on patient's age to complete this topic Vaginal Pap Discontinued Vulvoscopy Discontinued Procedures Procedure Name Priority Date/Time Associated Diagnosis Comments MAMMOGRAM BI-RADS, ABSTRACTED Routine 09/30/2016 THYROID CASCADE PROFILE Routine 04/27/2016 10:00 AM EDT Hypothyroidism due to acquired atrophy of thyroid COMPREHENSIVE METABOLIC PANEL Routine 10/11/2014 2:24 PM EDT Weight gain LIPID PANEL Routine 08/23/2014 10:32 AM EST Pre-diabetes Hyperlipidemia Routine health maintenance HEPATITIS A,B,C PANEL Routine 07/18/2014 9:50 AM EST Routine adult health maintenance from Last 3 Months or Most Recently Relevant to Health Maintenance Results * MAMMOGRAM BI-RADS, ABSTRACTED (09/30/2016) Anatomical Region Laterality Modality Other Provider Ismael ALVAREZ MAMMO Final Result * (ABNORMAL) THYROID CASCADE PROFILE (04/27/2016 10:00 AM EDT) TSH CASCADE 0.20(L) 0.40 - 4.00 uIU/ml [facility] Blood specimen (specimen) Blood / Unknown 04/27/2016 10:00 AM EDT 04/27/2016 10:43 AM EDT Narrative [facility] - 04/27/2016 1:13 PM EDT [facility] ([facility]) [address] [place] [id number] PT ID [id number] ORD# [id number] Helene Disla DNP LAB - BLOOD DRAW Edited Res ult - Final [facility] [address] [place] [address], * COMPRE METAB PANEL (10/11/2014 2:24 PM EDT) GLUCOSE 95 70 - 100 mg/dL [facility] Comment:Reference range appl icable to fasting specimens only CREAT 0.86 0.5 - 1.1 mg/dL [facility] GLOMERULAR FILTRATION RATE > 60 [facility] Comment: If patient is -Togolese, multiply result by 1.21 Chronic Kidney Disease: < 60 ml/min/1.73 square meters Kidney Failure: < 15 ml/min/1.73 square meters SODIUM 144 133 - 145 mEq/L [facility] POTASSIUM 4.7 3.5 - 5.5 mEq/L [facility] CHLORIDE 106 96 - 110 mEq/L [facility] CO2 31 21 - 32 mEq/L [facility] ANION GAP 7 3 - 11 [facility] CALCIUM 9.9 8.5 - 10.5 mg/dL [facility] TOTAL PROTEIN 7.1 6.0 - 8.0 G/dL [facility] ALBUMIN 4.6 3.2 - 5.0 G/dL [facility] BILI, TOTAL 0.6 0.0 - 1.4 mg/dL [facility] SGOT 25 10 - 42 U/L [facility] SGPT 29 10 - 60 U/L [facility] ALK PHOS 80 42 - 121 U/L [facility] BUN 20 5 - 25 mg/dL [facility] Blood specimen (specimen) Blood / Unknown 10/11/2014 2:24 PM EDT 10/11/2014 2:24 PM EDT Narrative [facility] - 10/11/2014 7:12 PM EDT [facility] ([facility]) [address] [place] [address] PT ID [id number] ORD# [id number] Maximo Dumont MD LAB - BLOOD DRAW Edited Resu lt - Final [facility] [address] [place] [address], [place] [phone] * (ABNORMAL) LIPID PANEL (08/23/2014 10:32 AM EST) CHOLESTEROL 208(H) 0 - 200 mg/dL [facility] TRIGLYCERIDES 72 0 - 150 mg/dL [facility] HDL CHOLESTEROL 78 >40 mg/dL [facility] LDL CALCULATED 116(H) 0 - 100 mg/dL [facility] TC-HDLC RATIO 2.7 0 - 4.4 mg/dL [facility] Blood specimen (specimen) Blood / Unknown 08/23/2014 10:32 AM EST 08/23/2014 10:32 AM EST Narrative [facility] - 08/23/2014 1:15 PM EST [employer] ([facility]) [address] [place] [address] PT ID [id number] ORD# [id number] Maximo Dumont MD LAB - BLOOD DRAW Edited Resu lt - Final Performing Organization Address City/[facility]/ZIP Co de Phone Number [facility] [address] [place] [address], [place] [phone] * HEPATITIS A,B,C PANEL (07/18/2014 9:50 AM EST) HEPATITIS B SURFACE ANTIBODY NEGATIVE NEGATIVE [facility] HEPATITIS B SURFACE ANTIGEN NEGATIVE NEGATIVE [facility] HEPATITIS C VIRUS ANTIBODY NEGATIVE NEGATIVE [facility] HEPATITIS A ANTIBODY TOTAL NEGATIVE NEGATIVE [facility] HEPATITIS B CORE ANTIBODY NEGATIVE NEGATIVE [facility] Blood specimen (specimen) Blood / Unknown 07/18/2014 9:50 AM EST 07/18/2014 10:06 AM EST Narrative [facility] - 07/18/2014 7:00 PM EST [facility] [address] [place] [address] PT ID [id number] ORD# [id number] Kami Cabrera MD LAB - BLOOD DRAW Edited Resu lt - Final [facility] [address] [place] [address], from Last 3 Months or Most Recently Relevant to Health Maintenance Insurance [employer] [place] D[place] HE[employer] S[employer]Y [employer] Care Teams Rag Collector Relationship Specialty Start Date End Date Domingo Gilliland PA [address] [place] [id number] PCP - General Internal Medicine 01/01/17
== END 2024-11-16 14:00 | disposition home or self-care (01) ==
LOC: HO.HAP 13:59
PROVIDERS: PCP Nurse Practitioner Family; Visit Provider Otolaryngology
DX: Z46.1 Encounter for fitting and adjustment of hearing aid (principal); H90.3 Sensorineural hearing loss, bilateral
CPT/HCPCS: V5264

== ENCOUNTER 2024-12-05 11:18 | Outpatient (REF) | payer MEDICARE, MEDICAID, SELFPAY ==
--- OUTSIDE RECORDS SUMMARY | 2024-12-05 12:06 | XMS_ITS | Clinical Summary ---
Author Organization [facility] Address [address] [place] [address] Care Team Providers Care Rn Dermatology Name Role Phone Domingo Gilliland Primary Care Provider [phone] Source Comments PLEASE NOTE, if this patient [...] 07/07/2016 H/O endoscopy 06/06/2016 Overview (06/06/2016): Done @[facility] [place] impression normal esophagus and gastric previous surgery Espino's cyst of knee 05/02/2015 S/P carpal tunnel release 08/23/2014 Overview (08/23/2014): On right successful 2010. H/O gastric ulcer 08/08/2014 Overview (08/08/2014): S/p EGD for UGIB(11/2012). Vitamin D deficiency 07/19/2014 Overview (07/19/2014): Level=14(07/2014) Anemia 07/19/2014 Overview (07/19/2014): YAN+ B12 def H/H= 9.8/32.5(07/2014) Pre-diabetes 07/19/2014 Overview (07/19/2014): A1c=6.4(07/2014) Hyperlipidemia 07/18/2014 Vitamin B12 deficiency 07/18/2014 Overview (07/18/2014): Xgmad=719(07/2014). Likely sec to gastric bypass? Hypothyroidism 07/17/2014 [...] Lumbar disc disease 0 07/17/2014 Overview (03/01/2015): [facility]. Dr. Carlos MD. low back pain persisted with mild improvement after SI joint injection, failed facet injections. Pt deferred epidural trial at this time 02/26/15 Arthritis 07/17/2014 H/O gastric bypass 07/17/2014 Overview (07/17/2014): gastric bypass ~2002. at [facility]. Was ~ 250 lb at that time [...] Tdap) 05/24/2023 05/24/2013 (Managed by Outside Provider) [id number] ( season) 2024 Imm-Influenza (#1) 2024 04/27/2016, [...] TSH CASCADE 0.20(L) 0.40 - 4.00 uIU/ml [facility] Blood specimen (specimen) Blood / Unknown 04/27/2016 10:00 AM EDT 04/27/2016 10:43 AM EDT Narrative [facility] - 04/27/2016 1:13 PM EDT [employer] [address] [place] [id number] PT ID [id number] ORD# [id number] Helene Disla DNP LAB - BLOOD DRAW Edited Res ult - Final [facility] [address] [place] [address], * COMPRE METAB PANEL (10/11/2014 2:24 PM EDT) GLUCOSE 95 70 - 100 mg/dL [facility] Comment:Reference range appl icable to fasting specimens only CREAT 0.86 0.5 - 1.1 mg/dL [facility] GLOMERULAR FILTRATION RATE > 60 [facility] Comment: If patient is -Prydeinig, multiply result by 1.21 Chronic Kidney Disease: [...] PM EDT 10/11/2014 2:24 PM EDT Narrative [facility] - 10/11/2014 7:12 PM EDT [employer] [address] [place] [address] PT ID [id number] ORD# [id number] Maximo Dumont MD LAB - BLOOD DRAW Edited Resu lt - Final [facility] [address] [place] [address], [place] [phone] * (ABNORMAL) LIPID PANEL (08/23/2014 10:32 AM EST) CHOLESTEROL 208(H) 0 - 200 mg/dL [facility] TRIGLYCERIDES 72 0 - 150 mg/dL [facility] HDL CHOLESTEROL 78 >40 mg/dL [facility] LDL CALCULATED 116(H) 0 - 100 mg/dL [facility] TC-HDLC RATIO 2.7 0 - 4.4 mg/dL [facility] Blood specimen (specimen) Blood / Unknown 08/23/2014 10:32 AM EST 08/23/2014 10:32 AM EST Narrative [facility] - 08/23/2014 1:15 PM EST [employer] [address] [place] [address] PT ID [id number] ORD# [id number] Maximo Dumont MD LAB - BLOOD DRAW Edited Resu lt - Final Performing Organization Address City/[facility]/ZIP Co de Phone Number [facility] [address] [place] [address], [place] [phone] * HEPATITIS A,B,C PANEL (07/18/2014 9:50 AM EST) HEPATITIS B SURFACE ANTIBODY NEGATIVE NEGATIVE [facility] HEPATITIS B SURFACE ANTIGEN NEGATIVE NEGATIVE [facility] HEPATITIS C VIRUS ANTIBODY NEGATIVE NEGATIVE [facility] HEPATITIS A ANTIBODY TOTAL NEGATIVE NEGATIVE [facility] HEPATITIS B CORE ANTIBODY NEGATIVE NEGATIVE [facility] Blood specimen (specimen) Blood / Unknown 07/18/2014 9:50 AM EST 07/18/2014 10:06 AM EST Narrative [facility] - 07/18/2014 7:00 PM EST [facility] [address] [place] [address] PT ID [id number] ORD# [id number] Kami Cabrera MD LAB - BLOOD DRAW Edited Resu lt - Final [facility] [address] [place] [address], from Last 3 Months or Most Recently Relevant to Health Maintenance Insurance [employer] [place] MED[place] DENTAL HEALTH SAFETY [facility] Care Teams Rn Dermatology Relationship Specialty Start Date End Date Domingo Gilliland PA [address] [place] [id number] PCP - General Internal Medicine 01/01/17
== END 2024-12-05 11:19 | disposition home or self-care (01) ==
LOC: HO.HAP 11:18
PROVIDERS: Visit Provider Nurse Practitioner Family
DX: Z46.1 Encounter for fitting and adjustment of hearing aid (principal); H90.3 Sensorineural hearing loss, bilateral
CPT/HCPCS: V5264